=== PATIENT | male | born 1990 | race Caucasian/White ===

== ENCOUNTER 2017-09-01 15:29 | Emergency (ER) | payer BC, SELFPAY ==
[2017-09-01 15:30] VITALS: BP 133/76; PULSE 95; RESP 18; TEMP 36.4; O2SAT 99; BMI 25.0
--- NOTE | 2017-09-01 15:54 | CT_ITS ---
STUDY: CT BRAIN WITHOUT CONTRAST REASON FOR EXAM: Male, 26 years old. Hit left side of head. Dizziness and confusion. RADIATION DOSAGE (If Supplied By Facility): CTDIvol = ( 44.99 ) mGy, DLP = ( 779.24 ) mGycm TECHNIQUE: Transaxial CT imaging of the brain was performed without administration of intravenous contrast material. Individualized dose optimization techniques were used for this CT. COMPARISON: None. FINDINGS: Normal soft tissue structures. Normal calvarium. Normal size ventricles and extra-axial spaces for the patient's age. Normal white matter tracts of the cerebral hemispheres. Normal basal ganglia and thalami. Normal brainstem. Normal cerebellum. There is no intracranial hemorrhage. There are no findings of an acute ischemic infarction. There is mucoperiosteal inflammatory disease of the paranasal sinuses consistent with mild chronic sinusitis. CT/Brain/Head without Contrast IMPRESSION: Normal unenhanced CT scan of the brain. Mild paranasal sinusitis. Electronically Signed: Barrie Whelan DO at 16:31 EST Tel , Service support ,
[2017-09-01 16:11] VITALS: BP 127/82; PULSE 97; RESP 14; O2SAT 98
--- NOTE | 2017-09-01 16:42 | ED.DCSUM_ITS ---
- ER Visit Summary Date of Service: 09/01/17 Chief Complaint: Head injury History of Present Illness: The patient is a 26 M who presents with a head injury. He states that he tripped in his garage and fell yesterday and hit his head. He did have a loss of consciousness but remembers falling. He currently complains of some nausea and dizziness. He denies any headache. He is not anticoagulated. No weakness numbness or tingling. Physical Examination: Afebrile vitals are normal Heart regular rate and rhythm Lungs are clear Abdomen soft Alert and oriented with a GCS of 15 no focal or lateralizing neurological deficits No signs of trauma such as lacerations contusions abrasions or hematomas Test Results: Ct of the head is normal Emergency Department Course and Treatment: CT was normal. Patient instructed on supportive care for concussion including brain rest. He understands return for new or worsening symptoms. He was discharged. Treatment Plan: [] Disposition: Discharge Impression: Closed head injury This note was generated with [employer] dictation software. It may contain incorrect words, spelling, and punctuation that were not noted in review of the chart prior to signing ED Disposition - Plan for ED Patient: Chief Complaint: Head Injury Referrals: Care Physician,No Primary [Primary Care Provider] -
--- NOTE | 2017-09-01 16:42 | ED.DEP ---
ED Disposition - Plan for ED Patient: Chief Complaint: Head Injury Instructions: ED Head Injury Closed Referrals: Care Physician,No Primary [Primary Care Provider] -
[2017-09-01 16:59] VITALS: BP 137/88; PULSE 81; RESP 16; O2SAT 99
== END 2017-09-01 16:59 | disposition home or self-care (01) ==
PROVIDERS: Emergency Provider Emergency Medicine
DX: S06.9X9A Unspecified intracranial injury with loss of consciousness of unspecified duration, initial encounter (principal); W01.0XXA Fall on same level from slipping, tripping and stumbling without subsequent striking against object, initial encounter; Y93.9 Activity, unspecified; Y92.008 Other place in unspecified non-institutional (private) residence as the place of occurrence of the external cause; Z72.0 Tobacco use
CPT/HCPCS: 70450; 99282